=== PATIENT | male | born 1940 | race Caucasian/White ===

== ENCOUNTER → 2019-09-04 | Outpatient (CLI) | payer MEDICARE ==
--- NOTE | 2019-09-07 09:28 | PCVCIMAG ---
APPROVED REPORT Study performed: 09/04/2019 15:10:29 EXAM: Comprehensive 2D, Doppler, and color-flow Echocardiogram Patient Location: Echo lab Status: routine BSA: 2.05 HR: 74 bpmBP: 120/62 mmHg Rhythm: NSR Other Information Study Quality: Adequate Risk Factors: Cardiac Risk Factors: HTN, Hyperlipidemia, DM Indications Abnormal ECG Diabetes Dyspnea Chest Pain Hypertension/HDD 2D Dimensions IVSd: 8.63 (7-11mm)LVOT Diam: 19.41 (18-24mm) LVDd: 65.09 mm PWd: 6.29 (7-11mm) LVDs: 57.30 (25-40mm) Left Atrium: 35.22 (27-40mm) Aortic Root: 27.56 mm LV Single Plane 4CH: 27.62 % LV Single Plane 2CH: 33.33 % Biplane EF: 30.6 % Volumes Left Atrial Volume (Systole) Single Plane 4CH: 77.54 mLSingle Plane 2CH: 77.56 mL Biplane LA Volume: 80.00 mLLA ESV Index: 39.00 mL/m2 Aortic Valve AoV Peak Jeevan.: 0.96 m/s AO Peak Gr.: 3.66 mmHgLVOT Max P.30 mmHg LVOT Max V: 0.76 m/s YESENIA Vmax: 2.34 cm2 Mitral Valve E/A Ratio: 1.6 MV Decel. Time: 149.09 ms MV E Max Jeevan.: 1.03 m/s MV A Jeevan.: 0.63 m/s MV Max Jeevan.: 4.90 m/s MV Mean Jeevan.: 3.58 m/s IVRT: 79.58 ms TDI E/Lateral E': 12.88E/Medial E': 17.17 Medial E' Jeevan.: 0.06 m/s Lateral E' Jeevan.: 0.08 m/s Pulmonary Vein P Vein S: 0.74 m/sP Vein A: 0.38 m/s P Vein D: 0.98 m/sP Vein A Dur.: 200.7 msec P Vein S/D Ratio: 0.76 Tricuspid Valve TR Peak Jeevan.: 2.85 m/s TR Peak Gr.: 32.39 mmHg TV Vmax: 0.60 m/sPA Pressure: 39.00 mmHg Left Ventricle Left ventricle is moderately dilated. The basal anterior wall is moderately hypokinetic. Akinesis of the mid-distal anterosepstal moreno and apex with dilitation of the apex seen. The mid-distal inferior wall appears akinetic with hypokinesis of the basal segment. There is normal left ventricular wall thickness. Left ventricular systolic function is moderate to severely decreased. LVEF is 30%. Findings suggest the left atrial pressure is elevated. Right Ventricle The right ventricle is normal size. The right ventricular systolic function is normal. Atria Left atrium is mildly dilated. The right atrium size is normal. Aortic Valve Aortic valve is trileaflet. Mild aortic valve sclerosis. No aortic regurgitation is present. There is no aortic valvular stenosis. Mitral Valve The mitral valve is normal in structure. Moderate to severe mitral regurgitation No evidence of mitral valve stenosis. Tricuspid Valve The tricuspid valve is normal in structure. Mild tricuspid regurgitation with a PA pressure of 39 mmHg. Pulmonic Valve The pulmonary valve is normal in structure. There is no pulmonic valvular regurgitation. Great Vessels The aortic root is normal in size. The ascending aorta is normal in size. Aortic arch is normal in caliber. IVC is normal in size and collapses >50% with inspiration. Pericardium There is no pericardial effusion. There is no pleural effusion. <Conclusion> Left ventricle is moderately dilated. LVEF is 30%. The basal anterior wall is moderately hypokinetic. Akinesis of the mid-distal anterosepstal moreno and apex with dilitation of the apex seen. The mid-distal inferior wall appears akinetic with hypokinesis of the basal segment. Left atrium is mildly dilated. Aortic valve is trileaflet. Mild aortic valve sclerosis. The mitral valve is normal in structure. Moderate to severe mitral regurgitation The tricuspid valve is normal in structure. Mild tricuspid regurgitation with a PA pressure of 39 mmHg. There is no pericardial effusion.
== END | disposition home or self-care (01) ==
LOC: PCVCIMAG 14:33
PROVIDERS: ATTEND Internal Medicine
DX: I08.3 Combined rheumatic disorders of mitral, aortic and tricuspid valves (principal); I11.9 Hypertensive heart disease without heart failure; E78.5 Hyperlipidemia, unspecified; E11.9 Type 2 diabetes mellitus without complications; Z90.09 Acquired absence of other part of head and neck; Z80.3 Family history of malignant neoplasm of breast; Z82.3 Family history of stroke; Z82.49 Family history of ischemic heart disease and other diseases of the circulatory system; Z79.899 Other long term (current) drug therapy; Z79.84 Long term (current) use of oral hypoglycemic drugs
CPT/HCPCS: 93005; 93306; G0463